=== PATIENT | male | born 1930 | race Caucasian/White ===

== ENCOUNTER 2017-07-29 17:36 | Inpatient (IN) ==
[2017-08-09] MEDS ORDERED: Acetaminophen 325 MG Tablet PO PRN (01:02)
[2017-08-09] MEDS ORDERED: Bisacodyl 10 MG Supp RECTAL PRN (01:04)
[2017-08-09] MEDS ORDERED: Dextrose 50% in Water 50 ML Vial IV.PUSH PRN (01:08)
[2017-08-09] MEDS ORDERED: Menthol 5.8 MG Lozenge BUCCAL PRN (01:16)
[2017-08-09] MEDS ORDERED: Morphine Inj 4 MG/ML Vial IV.PUSH PRN (01:18)
[2017-08-09] MEDS: Sod Chloride 0.9% Inj 1,000 ML IV.SIG SCH ×2 (02:35→21:55)
[2017-08-09] MEDS ORDERED: Chlorhexidine Gluconate 2% 1 Pack (2 Cloths) TOPICAL PRN (04:00)
[2017-08-09] MEDS: Methocarbamol 500 MG Tablet PO SCH ×3 (05:06→21:53)
[2017-08-09] MEDS: Chlorhexidine Gluconate 2% 1 Pack (2 Cloths) TOPICAL SCH (05:32)
--- NOTE | 2017-08-09 06:04 | XR ---
EXAM DATE: 08/09/2017 5:57 AM EDT AGE/SEX: 86 years / Male INDICATIONS: Right side chest tube, short of breath. CLINICAL DATA: This is the patient's subsequent encounter. Patient reports that signs and symptoms h ave been present for 1 week and indicates a pain score of 9/10. MEDICAL/SURGICAL HISTORY: None. None. COMPARISON: [facility] [place], CHEST SINGLE AP, 08/08/2017. . FINDINGS: Small effusions and basilar interstitial disease and probable pulmonary fibrosis. No new infiltrate. Heart size normal. CONCLUSION: Right chest tube. Basilar lung fibrosis. Small effusions. Electronically signed by: Alfonzo Cervantes MD 08/09/2017 6:03 AM EDT
[2017-08-09] MEDS: amLODIPine 10 MG Tablet PO SCH (08:23)
[2017-08-09] MEDS: Lisinopril 20 MG Tablet PO SCH ×2 (08:23→21:49)
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
--- NOTE | 2017-08-09 15:34 | P.PNCA ---
Subjective Interval history: No events overnight Heart rates better, blood pressure mildly elevated but stable around 140-150 systolically Physical Exam Vital signs: Vital Signs 08/09/17 02:57 08/09/17 08:00 08/09/17 12:00 Temperature 98.5 F 98.1 F 97.4 F L Pulse Rate 60 63 72 Respiratory Rate 20 17 16 Blood Pressure 143/64 H 159/71 H 140/62 Pulse Oximetry 95 98 98 Intake & Output 08/08/17 08/09/17 08/09/17 18:59 06:59 18:59 Intake Total 0 / 0 Output Total 1750 / 1750 Balance -1750 / -1750 Weight 95.9 kg Intake: Oral 0 / 0 Output: Urine 1700 / 1700 Chest Tube Drainage 50 / 50 Right Anterior 50 / 50 Narrative: GENERAL: NAD, AAOx3 SKIN: Warm and dry. HEAD: Atraumatic. Normocephalic. EYES: Pupils equal and round. No scleral icterus. No injection or drainage. ENT: No nasal bleeding or discharge. Mucous membranes pink and moist. NECK: Trachea midline. No JVD. [place] J collar CARDIOVASCULAR: Regular rate and rhythm. RESPIRATORY: No accessory muscle use. Clear to auscultation. Breath sounds equal bilaterally. GASTROINTESTINAL: Abdomen soft, non-tender, nondistended. Hepatic and splenic margins not palpable. MUSCULOSKELETAL: Extremities without clubbing, cyanosis, or edema. No obvious deformities. NEUROLOGICAL: Awake and alert. No obvious cranial nerve deficits. Motor grossly within normal limits. Five out of 5 muscle strength in the arms and legs. Normal speech. PSYCHIATRIC: Appropriate mood and affect; insight and judgment normal. Assessment and Plan - Assessment (1) Bradycardia Code(s): R00.1 - Bradycardia, unspecified Status: Acute (2) HTN (hypertension) Code(s): I10 - Essential (primary) hypertension Status: Acute - Plan 1) Pre-op CV exam Negative stress test Agree with Dr. Tamayo, moderate CV risk, may proceed 2) Bradycardia Secondary to Clonidine patch Clonidine patch stopped, bradycardia has mostly resolved 3) HTN D/C Clonidine patch Started on Norvasc, increase as necessary or increase JOSE-I
[2017-08-09] MEDS: Insulin NovoLOG Aspart Correctional Sugar Inj SQ SCH ×4 (17:03→21:52)
[2017-08-09] MEDS: Enoxaparin Inj 40 MG/0.4 ML Syringe SQ SCH (17:21)
[2017-08-09] MEDS: Docusate Sodium 100 MG Capsule PO SCH ×2 (17:23→21:47)
--- NOTE | 2017-08-09 22:16 | P.PNNS ---
Subjective Interval history: No new complaints. He is sitting up in bed, talking to friends on the telephone. States no significant neck pain. No complaint of significant weakness or numbness in the extremities. NG tube in place Physical Exam Vital signs: Vital Signs 08/09/17 02:57 08/09/17 08:00 08/09/17 12:00 Temperature 98.5 F 98.1 F 97.4 F L Pulse Rate 60 63 72 Respiratory Rate 20 17 16 Blood Pressure 143/64 H 159/71 H 140/62 Pulse Oximetry 95 98 98 08/09/17 16:00 08/09/17 20:00 Temperature 97.8 F 97.7 F Pulse Rate 72 73 Respiratory Rate 16 18 Blood Pressure 143/66 H 131/61 Pulse Oximetry 93 L 90 L Intake & Output 08/09/17 08/09/17 08/10/17 06:59 18:59 06:59 Intake Total 0 / 0 60 / 60 Output Total 1750 / 1750 Balance -1750 / -1750 60 / 60 Intake: Oral 0 / 0 Tube Feeding 60 / 60 Output: Urine 1700 / 1700 Chest Tube Drainage 50 / 50 Right Anterior 50 / 50 Narrative: Cervical collar in place Neck dressing dry and intact No significant hoarseness of voice No significant neck tenderness He is sitting up in bed, talking to friends on the telephone. States no significant neck pain. No complaint of significant weakness or numbness in the extremities. 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
[2017-08-10] MEDS: Chlorhexidine Gluconate 2% 1 Pack (2 Cloths) TOPICAL SCH (03:28)
[2017-08-10] MEDS: Methocarbamol 500 MG Tablet PO SCH ×3 (05:58→21:32)
--- NOTE | 2017-08-10 06:15 | XR ---
EXAM DATE: 08/10/2017 6:06 AM EDT AGE/SEX: 86 years / Male INDICATIONS: Short of breath, evaluate chest tube right side, pleural effusion CLINICAL DATA: This is the patient's subsequent encounter. Patient reports that signs and symptoms h ave been present for 1 week and indicates a pain score of 0/10. MEDICAL/SURGICAL HISTORY: . pleural effusion . chest tube, cervical spine COMPARISON: [facility] [place], CHEST 1V SINGLE AP, 08/09/2017. . FINDINGS: Right chest tube stable in position mid right chest. No evidence of pneumothorax. Patchy infiltrates in the left lower lung with some air bronchograms is similar to prior. Both hemidiaphragms remain wel l delineated. Interval placement of gastric tube with tip and side-port project within the stomach. CONCLUSION: Stable interstitial infiltrates left lower lung. Right chest tube stable in position. Electronically signed by: Randall Russell MD 08/10/2017 6:14 AM EDT
[2017-08-10] MEDS: Lisinopril 20 MG Tablet PO SCH ×2 (09:09→20:17)
[2017-08-10] MEDS: amLODIPine 10 MG Tablet PO SCH (09:09)
[2017-08-10] MEDS: Insulin NovoLOG Aspart Correctional Sugar Inj SQ SCH ×4 (09:11→22:04)
[2017-08-10] MEDS: Docusate Sodium 100 MG Capsule PO SCH ×2 (09:12→20:18)
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
--- NOTE | 2017-08-10 12:25 | P.PNCA ---
Subjective Interval history: No events overnight Heart rates better Physical Exam Vital signs: Vital Signs 08/09/17 16:00 08/09/17 20:00 08/10/17 00:00 Temperature 97.8 F 97.7 F 98.2 F Pulse Rate 72 73 68 Respiratory Rate 16 18 18 Blood Pressure 143/66 H 131/61 144/66 H Pulse Oximetry 93 L 90 L 92 L 08/10/17 08:00 Temperature 97.6 F Pulse Rate 81 Respiratory Rate 17 Blood Pressure 137/57 L Pulse Oximetry 91 L Intake & Output 08/09/17 08/10/17 08/10/17 18:59 06:59 18:59 Intake Total 60 / 60 0 / 0 Output Total 1050 / 1050 Balance 60 / 60 -1050 / -1050 Intake: Oral 0 / 0 Tube Feeding 60 / 60 Output: Urine 850 / 850 Chest Tube Drainage 200 / 200 Right Anterior 200 / 200 Other: # Bowel Movements 1 - Constitutional no acute distress, mild distress - Routine HEENT Exam Eye: Present: EOMI, PERRL ENT: Present: mucous membranes moist - Routine Neck Exam Present: supple. Absent: JVD - Routine Respiratory Exam Present: CTA bilaterally. Absent: accessory muscle use - Routine Cardiovascular Exam Present: RRR, S1, S2. Absent: murmur - Routine Abdominal Exam Present: soft, normoactive bowel sounds. Absent: tenderness - Routine Extremities Exam Absent: cyanosis, clubbing, edema - Routine Skin Exam Present: intact, dry - Routine Neurological Exam Present: alert, oriented X3, CN II-XII intact - Routine Psychiatric Exam Present: normal affect Assessment and Plan - Assessment (1) Bradycardia Code(s): R00.1 - Bradycardia, unspecified Status: Acute (2) HTN (hypertension) Code(s): I10 - Essential (primary) hypertension Status: Acute - Plan 1) Pre-op CV exam Negative stress test Agree with Dr. Tamayo, moderate CV risk, may proceed 2) Bradycardia Secondary to Clonidine patch Clonidine patch stopped, bradycardia has resolved 3) HTN D/C Clonidine patch Started on Norvasc, increase as necessary or increase JOSE-I 4) Will see PRN, call with questions
[2017-08-10] MEDS: Enoxaparin Inj 40 MG/0.4 ML Syringe SQ SCH (12:34)
[2017-08-10] MEDS: Famotidine 20 MG Tablet PO SCH ×2 (13:54→20:17)
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
--- NOTE | 2017-08-10 18:36 | FL ---
EXAM DATE: 08/09/2017 11:35 AM EDT AGE/SEX: 86 years / Male INDICATIONS: Aspirating thin fluids. CLINICAL DATA: This is the patient's initial encounter. Patient reports that signs and symptoms have been present for 1 day and indicates a pain score of 0/10. MEDICAL/SURGICAL HISTORY: None. None. COMPARISON: No prior exams available for comparison. FLUORO TIME: 1.7 IMAGE COUNT: 3 FINDINGS: A modified barium swallow was performed with speech pathology. Patient was given a variety of liquids to swallow. For a full detailed report, see report by the speech pathologist. CONCLUSION: For a full detailed report, see report by the speech pathologist. Electronically signed by: Samir Murrieta MD 08/10/2017 6:35 PM EDT
--- NOTE | 2017-08-10 18:58 | P.PNNS ---
Subjective Interval history: Pt denies neck pain. No radiculopathy or paresthesias in UEs. He has an NG tube in place and is on TFs. Physical Exam Vital signs: Vital Signs 08/09/17 20:00 08/10/17 00:00 08/10/17 08:00 Temperature 97.7 F 98.2 F 97.6 F Pulse Rate 73 68 81 Respiratory Rate 18 18 17 Blood Pressure 131/61 144/66 H 137/57 L Pulse Oximetry 90 L 92 L 91 L 08/10/17 12:00 08/10/17 16:00 Temperature 98.1 F 97.9 F Pulse Rate 73 83 Respiratory Rate 17 17 Blood Pressure 126/58 L 117/56 L Pulse Oximetry 92 L 95 Intake & Output 08/09/17 08/10/17 08/10/17 18:59 06:59 18:59 Intake Total 60 / 60 0 / 0 580 / 580 Output Total 1050 / 1050 600 / 600 Balance 60 / 60 -1050 / -1050 -20 / -20 Intake: Oral 0 / 0 Tube Feeding 60 / 60 580 / 580 Output: Urine 850 / 850 600 / 600 Chest Tube Drainage 200 / 200 Right Anterior 200 / 200 Other: # Voids 1 # Bowel Movements 1 6 - Constitutional no acute distress - Routine HEENT Exam Head: Present: normocephalic, atraumatic Eye: Present: PERRL. Absent: conjunctival icterus ENT: Absent: nares patent (NG tube in place.) - Routine Neck Exam Present: trachea midline. Absent: swelling (Anterior cervical incision clean and dry without signs of infection.), tracheal deviation - Routine Respiratory Exam Present: CTA bilaterally. Absent: respiratory distress, rhonchi, wheezes - Routine Cardiovascular Exam Present: RRR, S1, S2. Absent: murmur - Routine Abdominal Exam Present: soft, normoactive bowel sounds. Absent: tenderness, distended, guarding, firm - Routine Skin Exam Present: intact, dry. Absent: cyanosis, erythema Comments: Incision clean and dry. No signs of infection. New bandage placed. - Routine Neurological Exam Present: alert, oriented X3, moving all extremities (weakness with deltoid bilaterally 4/5 and right triceps 4/5. Bilateral EHL weakness 3-/5.). Absent: altered mental status - Detailed Neurological Exam: Coma Scale Eye Opening: Spontaneous Verbal Response: Oriented Motor Response: Obey commands [place] Coma Scale Total: 15 - Routine Psychiatric Exam Present: normal affect Assessment and Plan - Assessment (1) Cervical spine instability Code(s): M53.2X2 - Spinal instabilities, cervical region Status: Acute - Plan Discussed with patient Continuing cervical collar Continuing physical therapy Anticipate possible T7-8 ORIF on Thursday by Dr. Vivas.
[2017-08-11] MEDS: Chlorhexidine Gluconate 2% 1 Pack (2 Cloths) TOPICAL SCH (05:33)
[2017-08-11] MEDS: Methocarbamol 500 MG Tablet PO SCH ×3 (05:46→21:34)
[2017-08-11 05:49] LABS: Baso # (Auto) 0.1 th/mm3 (0.0-0.2); Baso % (Auto) 0.5 % (0.0-2.0); Hematocrit 35.7 % (39.0-51.0); Hemoglobin 11.6 gm/dL (13.0-17.0); Lymph # (Auto) 0.8 th/mm3 (1.0-4.8); Lymph % (Auto) 5.1 % (9.0-44.0); Mean Corpuscular HGB Conc 32.6 % (32.0-36.0); Mean Corpuscular Hemoglobin 26.2 pg (27.0-34.0); Mean Corpuscular Volume 80.4 fL (80.0-100.0); Mean Platelet Volume 7.5 fL (7.0-11.0); Mono # (Auto) 0.8 th/mm3 (0.0-0.9); Mono % (Auto) 5.2 % (0.0-8.0); Neut # (Auto) 14.2 th/mm3 (1.8-7.7); Neut % (Auto) 89.2 % (16.0-70.0); Platelet Count 326 th/mm3 (150-450); Red Blood Count 4.44 mil/mm3 (4.50-5.90); Red Cell Distribution Width 15.2 % (11.6-17.2); White Blood Count 15.9 th/mm3 (4.0-11.0)
[2017-08-11 06:19] LABS: Calcium 8.3 mg/dL (8.5-10.1); Carbon Dioxide 30.6 meq/L (21.0-32.0); Potassium 4.6 meq/L (3.5-5.1)
--- NOTE | 2017-08-11 07:00 | XR ---
EXAM DATE: 08/11/2017 6:51 AM EDT AGE/SEX: 86 years / Male INDICATIONS: Short of breath, evaluate right side chest tube, pleural effusion CLINICAL DATA: This is the patient's subsequent encounter. Patient reports that signs and symptoms h ave been present for 1 week and indicates a pain score of Nonresponsive. MEDICAL/SURGICAL HISTORY: . pleural effusion . chest tube COMPARISON: [facility], CHEST 1V SINGLE AP, 08/10/2017. . FINDINGS: Gastric tube tip and side-port projected in the stomach. Right chest tube projects in the right mid c hest, stable position. Diffuse patchy interstitial infiltrates are similar in severity to prior. No e vidence of pneumothorax. CONCLUSION: Stable bilateral interstitial infiltrates. Electronically signed by: Randall Russell MD 08/11/2017 6:58 AM EDT
[2017-08-11] MEDS: Lisinopril 20 MG Tablet PO SCH ×2 (08:43→20:31)
[2017-08-11] MEDS: Famotidine 20 MG Tablet PO SCH ×2 (08:43→20:31)
[2017-08-11] MEDS: amLODIPine 10 MG Tablet PO SCH (08:43)
[2017-08-11] MEDS: Insulin NovoLOG Aspart Correctional Sugar Inj SQ SCH ×4 (08:47→20:33)
[2017-08-11] MEDS: Docusate Sodium 100 MG Capsule PO SCH ×2 (08:48→20:32)
[2017-08-11] MEDS ORDERED: Famotidine Susp 40 MG/5ML 50 ML Bottle PO SCH (09:00)
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
--- NOTE | 2017-08-11 12:21 | P.PNNS ---
Subjective Interval history: This morning the patient is sitting up in the chair watching TV. He denies any neck pain but does say he has a little to the back. He denies any pain, numbness or tingling to the extremities. He is in the [place] J cervical collar. <Miguel Ángel Malone E - Last Filed: 08/11/17 12:01> Physical Exam Vital signs: Vital Signs 08/10/17 16:00 08/10/17 20:00 08/11/17 00:00 Temperature 97.9 F 98.1 F 98 F Pulse Rate 83 75 77 Respiratory Rate 17 18 18 Blood Pressure 117/56 L 122/58 L 125/60 Pulse Oximetry 95 95 95 08/11/17 08:00 Temperature 97.9 F Pulse Rate 73 Respiratory Rate 17 Blood Pressure 125/57 L Pulse Oximetry 93 L Intake & Output 08/10/17 08/11/17 08/11/17 18:59 06:59 18:59 Intake Total 580 / 580 643 / 643 Output Total 600 / 600 610 / 610 Balance -20 / -20 33 / 33 Weight 96 kg Intake: Oral 0 / 0 Tube Feeding 580 / 580 583 / 583 Tube Irrigant 60 / 60 Output: Urine 600 / 600 600 / 600 Chest Tube Drainage Right Anterior Other: # Voids 1 # Incontinent Voids 3 Date of Last Bowel Movement 08/10/17 # Bowel Movements 6 Narrative: GENERAL: Awake & alert, sitting in the chair watching TV. Affect slightly flat but readily interacts. No apparent distress. HEENT: Normocephalic, atraumatic. PERRLA 2 mm brisk, EOMI. NGT clamped. NECK: [place] J cervical collar in place. Midline cervical spine NTTP. Anterior neck surgical incision w/intact dressing, incision well approximated w/o any drainage, erythema or streaking noted. No JVD. Trachea midline. MUSCULOSKELETAL: LAURENT spontaneously & purposefully w/o difficulty. Mildly TTP to the mid to lower thoracic spine. NEUROLOGICAL: AAOx3. Speech clear & appropriate. Follows simple commands w/o difficulty. Sensation is intact to light touch to the extremities. Motor strength mildly decreased to the right biceps 4+/5 & right triceps 4/5, o/w strong to all extremities. <Miguel Ángel Malone E - Last Filed: 08/11/17 12:01> Vital signs: Vital Signs 08/11/17 00:00 08/11/17 08:00 08/11/17 12:00 Temperature 98 F 97.9 F 98.4 F Pulse Rate 77 73 70 Respiratory Rate 18 17 17 Blood Pressure 125/60 125/57 L 123/59 L Pulse Oximetry 95 93 L 94 L 08/11/17 16:00 Temperature 98.1 F Pulse Rate 76 Respiratory Rate 17 Blood Pressure 122/56 L Pulse Oximetry 95 Intake & Output 08/11/17 08/11/17 08/12/17 06:59 18:59 06:59 Intake Total 643 / 643 445 / 445 Output Total 610 / 610 250 / 250 Balance 33 / 33 195 / 195 Weight 96 kg Intake: Oral 0 / 0 Tube Feeding 583 / 583 445 / 445 Tube Irrigant 60 / 60 Output: Urine 600 / 600 250 / 250 Chest Tube Drainage Right Anterior Other: # Voids 1 # Incontinent Voids 3 Date of Last Bowel Movement 08/10/17 <Steve Palm - Last Filed: 08/11/17 20:43> Assessment and Plan - Assessment (1) Cervical spine instability Code(s): M53.2X2 - Spinal instabilities, cervical region Status: Acute - Plan Discussed with patient Continuing cervical collar Continuing physical therapy Anticipate possible T7-8 ORIF on Thursday by Dr. Vivas. <Miguel Ángel Malone - Last Filed: 08/11/17 12:01> - Assessment (1) Cervical spine instability Code(s): M53.2X2 - Spinal instabilities, cervical region Status: Acute - Attending Attestation The exam, history, and the medical decision-making described in the above note were completed with the assistance of the mid-level provider. I reviewed and agree with the findings presented. I attest that I had a [id number] encounter with the patient on the same day, and personally performed and documented my assessment and findings in the medical record. Patient's neurologic exam remained stable. May have a little proximal upper extremity weakness. Anticipate further surgical stabilization per Dr. Vivas on 08/14/2017 <Steve Palm - Last Filed: 08/11/17 20:43>
[2017-08-11] MEDS: Enoxaparin Inj 40 MG/0.4 ML Syringe SQ SCH (12:47)
[2017-08-12] MEDS: Chlorhexidine Gluconate 2% 1 Pack (2 Cloths) TOPICAL SCH (03:50)
[2017-08-12 04:49] LABS: Baso % (Auto) 0.1 % (0.0-2.0); Eos % (Auto) 0.1 % (0.0-4.0); Hemoglobin 11.6 gm/dL (13.0-17.0); Lymph # (Auto) 0.5 th/mm3 (1.0-4.8); Lymph % (Auto) 3.5 % (9.0-44.0); Mean Corpuscular HGB Conc 32.1 % (32.0-36.0); Mean Corpuscular Hemoglobin 26.3 pg (27.0-34.0); Mean Corpuscular Volume 81.9 fL (80.0-100.0); Mono # (Auto) 0.5 th/mm3 (0.0-0.9); Mono % (Auto) 3.6 % (0.0-8.0); Neut # (Auto) 13.8 th/mm3 (1.8-7.7); Neut % (Auto) 92.7 % (16.0-70.0); Platelet Count 306 th/mm3 (150-450); Red Cell Distribution Width 15.3 % (11.6-17.2); White Blood Count 14.9 th/mm3 (4.0-11.0)
[2017-08-12] MEDS: Methocarbamol 500 MG Tablet PO SCH ×4 (05:00→21:02)
[2017-08-12 05:11] LABS: Calcium 8.5 mg/dL (8.5-10.1); Carbon Dioxide 32.6 meq/L (21.0-32.0); Potassium 5.3 meq/L (3.5-5.1)
--- NOTE | 2017-08-12 08:47 | XR ---
EXAM DATE: 08/12/2017 8:40 AM EDT AGE/SEX: 86 years / Male INDICATIONS: Trauma to chest. CLINICAL DATA: This is the patient's subsequent encounter. Patient reports that signs and symptoms h ave been present for 4 - 6 days and indicates a pain score of 0/10. MEDICAL/SURGICAL HISTORY: . pleural effusion . Chest tube. COMPARISON: [facility] [place], CHEST 1V SINGLE AP, 08/11/2017. . FINDINGS: A single AP view of the chest demonstrates removal of right-sided chest tube. Tiny right apical pneum othorax. Bibasilar interstitial densities are stable. Nasogastric tube with tip in stomach. The card iomediastinal contours are unremarkable. Osseous structures are intact. CONCLUSION: Minimal pneumothorax status post right-sided chest tube removal Electronically signed by: Jadiel Wilkes MD 08/12/2017 8:45 AM EDT
[2017-08-12] MEDS: amLODIPine 10 MG Tablet PO SCH (09:09)
[2017-08-12] MEDS: Lisinopril 20 MG Tablet PO SCH ×2 (09:09→20:57)
[2017-08-12] MEDS: Famotidine 20 MG Tablet PO SCH ×2 (09:09→20:57)
[2017-08-12] MEDS: Docusate Sodium 100 MG Capsule PO SCH ×2 (09:10→20:58)
[2017-08-12] MEDS: Insulin NovoLOG Aspart Correctional Sugar Inj SQ SCH ×4 (09:11→21:01)
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
[2017-08-12] MEDS: Enoxaparin Inj 40 MG/0.4 ML Syringe SQ SCH (12:07)
--- NOTE | 2017-08-12 14:54 | P.PNNS ---
Subjective Interval history: Pt awake and alert. Sitting up in chair. Complains of mid back pain. No radiculopathy in UEs or LEs. Physical Exam Vital signs: Vital Signs 08/11/17 16:00 08/11/17 20:00 08/12/17 00:00 Temperature 98.1 F 98.9 F 98.7 F Pulse Rate 76 72 69 Respiratory Rate 17 18 18 Blood Pressure 122/56 L 130/60 116/55 L Pulse Oximetry 95 94 L 94 L 08/12/17 04:00 08/12/17 08:00 Temperature 98.1 F 97.7 F Pulse Rate 68 68 Respiratory Rate 18 16 Blood Pressure 128/58 L 134/64 Pulse Oximetry 94 L 94 L Intake & Output 08/11/17 08/12/17 08/12/17 18:59 06:59 18:59 Intake Total 445 / 445 625 / 625 Output Total 250 / 250 850 / 850 Balance 195 / 195 -225 / -225 Intake: Tube Feeding 445 / 445 625 / 625 Output: Urine 250 / 250 850 / 850 Other: # Voids 1 Date of Last Bowel Movement 08/10/17 08/12/17 # Bowel Movements 2 # Incontinent Bowel Movements 1 - Constitutional no acute distress, obese - Routine HEENT Exam Head: Present: normocephalic, atraumatic Eye: Present: PERRL ENT: Present: nares patent (NG Tube in place.) - Routine Respiratory Exam Present: CTA bilaterally. Absent: rhonchi, wheezes - Routine Cardiovascular Exam Present: RRR, S1, S2. Absent: murmur - Routine Abdominal Exam Present: soft, normoactive bowel sounds. Absent: tenderness, distended - Routine Extremities Exam Absent: cyanosis - Routine Skin Exam Present: intact. Absent: cyanosis, erythema - Routine Neurological Exam Present: alert, moving all extremities (Bilateral EHL weakness 3/5. Generalized weakness in extremities.), normal speech - Routine Psychiatric Exam Present: normal affect, cooperative. Absent: agitated Assessment and Plan - Assessment (1) Cervical spine instability Code(s): M53.2X2 - Spinal instabilities, cervical region Status: Acute - Plan Discussed with patient Continuing cervical collar Continuing physical therapy Anticipate possible T7-8 ORIF on Thursday by Dr. Vivas.
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
[2017-08-13] MEDS ORDERED: Sodium Chlor 0.9% Inj 500 ML IV.SIG SCH (02:00)
[2017-08-13] MEDS ORDERED: Metoprolol Tartrate 25 MG Tablet PO SCH (02:00)
[2017-08-13] MEDS ORDERED: Chlorhexidine Gluconate 2% 1 Pack (2 Cloths) TOPICAL SCH (02:00)
[2017-08-13] MEDS: Chlorhexidine Gluconate 2% 1 Pack (2 Cloths) TOPICAL SCH (03:20)
[2017-08-13] MEDS: Methocarbamol 500 MG Tablet PO SCH ×4 (05:10→22:56)
[2017-08-13] MEDS ORDERED: Ketamine Inj 50 MG/5 ML Syringe IV.PUSH ONE (10:56)
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
--- NOTE | 2017-08-13 11:22 | GIPROC ---
[facility] [address] [facility]. [facility] [place], [address] PEG PROCEDURE REPORT EXAM DATE: 08/13/2017 PATIENT NAME: Baltazar Brown MR#: [id number] BIRTHDATE: 1930 ATTENDING: Antonina Cochran MD ORDER #: [id number] SALES TRADER: Gilles Hunt STATUS: inpatient INDICATIONS: The patient is a 86 yr old male here for an EGD with PEG due to dysphagia PROCEDURE PERFORMED: Peg Placement MEDICATIONS: None and Per Anesthesia. TOPICAL ANESTHETIC: none CONSENT: The patient understands the risks and benefits of the procedure and understands that these risks include, but are not limited to: sedation, allergic reaction, infection, perforation and/or bleeding. Alternative means of evaluation and treatment include, among others: physical exam, x-rays, and/or surgical intervention. The patient elects to proceed with this endoscopic procedure. medical equipment was checked for proper function. Hand hygiene and appropriate measures for infection prevention was taken. After the risks, benefits and alternatives of the procedure were thoroughly explained, Informed consent was verified, confirmed and timeout was successfully executed by the treatment team. The patient was anesthetized with topical anesthesia and the Nokoriax [id number] endoscope was introduced through the mouth and advanced to the Extent of Exam. The instrument was slowly withdrawn as the mucosa was fully examined. The stomach was then inflated with air, and by a combination of transillumination and manual palpation, the site for the gastrostomy tube placement was selected and marked on the anterior abdominal wall. The skin of the anterior abdomen was surgically prepped and draped with sterile towels. Utilizing strict sterile technique, the selected site was then anesthetized with 1% xylocaine by injection into the skin and subcutaneous tissue. A 1 cm incision was made through the skin and subcutaneous tissue, and the needle/cannula assembly was then passed through the abdominal wall and through the anterior wall of the stomach, maintaining visualization with the endoscope. A snare device previously placed through the instrument channel was then opened and placed around the cannula, the needle was removed, and the insertion wire was passed through the cannula and into the stomach lumen. The snare was then loosened from the cannula, and repositioned to snare the insertion wire. The snare was then pulled up to the endoscope distal tip, and the scope was then withdrawn bringing with it the snare and insertion wire. The insertion wire was then released from the snare, and then loop-attached to the gastrostomy tube. Using the "pull technique", the G-tube was then pulled into place by traction on the insertion wire at the abdominal wall end. The G-tube insertion site was then cleansed once again, and the external bolster was placed over the tube to secure it to the abdominal wall. A sterile dressing was then applied, and the procedure terminated. hiatal hernia The gastroscope was then slowly withdrawn and removed. ADVERSE EVENT: There were no complications. IMPRESSIONS: S/p percutaneous endoscopic gastrostomy RECOMMENDATIONS: 1. Follow PEG suggestions 2. Begin feeding tomorrow REPEAT EXAM: procedure as needed Antonina Cochran MD eSigned: Antonina Cochran MD 08/13/2017 11:22 AM cc: PATIENT NAME: Baltazar Brown MR#: [id number]
[2017-08-13] MEDS: Insulin NovoLOG Aspart Correctional Sugar Inj SQ SCH ×2 (14:37→23:05)
[2017-08-13] MEDS: Docusate Sodium 100 MG Capsule PO SCH ×2 (14:38→21:57)
[2017-08-13] MEDS: amLODIPine 10 MG Tablet PO SCH (14:39)
[2017-08-13] MEDS: Famotidine 20 MG Tablet PO SCH ×3 (14:40→22:57)
[2017-08-13] MEDS: Lisinopril 20 MG Tablet PO SCH ×3 (14:40→22:57)
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
--- NOTE | 2017-08-13 20:30 | P.PNNS ---
Subjective Interval history: No new complaints. Mild neck discomfort. No complaint of any new extremity pain weakness or numbness. Physical Exam Vital signs: Vital Signs 08/12/17 20:44 08/13/17 01:03 08/13/17 08:00 Temperature 98.0 F 98.0 F 98.1 F Pulse Rate 80 63 65 Respiratory Rate 18 17 17 Blood Pressure 134/66 122/50 L 125/58 L Pulse Oximetry 96 96 98 08/13/17 11:32 08/13/17 12:00 08/13/17 16:00 Temperature 97.8 F 98.4 F 97.8 F Pulse Rate 64 84 70 Respiratory Rate 18 18 17 Blood Pressure 114/54 L 97/50 L 128/60 Pulse Oximetry 95 91 L 96 Intake & Output 08/13/17 08/13/17 08/14/17 06:59 18:59 06:59 Intake Total 780 / 780 100 / 100 Output Total 800 / 800 900 / 900 Balance -20 / -20 -800 / -800 Weight 96 kg Intake: Oral 780 / 780 Anesthesia Amount 100 / 100 Output: Urine 800 / 800 900 / 900 Other: Date of Last Bowel Movement 08/12/17 # Bowel Movements 0 Narrative: Sitting up in bed. Cervical collar in place No significant neck tenderness. Indicates good sensation light touch all extremities Moves all extremities moderate strength to command Assessment and Plan - Assessment (1) Cervical spine instability Code(s): M53.2X2 - Spinal instabilities, cervical region Status: Acute - Plan Discussed with patient Continuing cervical collar Continuing physical therapy Anticipate possible T7-8 ORIF on Thursday by Dr. Vivas.
[2017-08-14 04:44] LABS: Baso % (Auto) 0.2 % (0.0-2.0); Eos # (Auto) 0.3 th/mm3 (0.0-0.4); Eos % (Auto) 2.6 % (0.0-4.0); Hematocrit 36.3 % (39.0-51.0); Hemoglobin 11.6 gm/dL (13.0-17.0); Lymph # (Auto) 0.9 th/mm3 (1.0-4.8); Lymph % (Auto) 8.5 % (9.0-44.0); Mean Corpuscular HGB Conc 31.9 % (32.0-36.0); Mean Corpuscular Hemoglobin 26.1 pg (27.0-34.0); Mean Platelet Volume 8.1 fL (7.0-11.0); Mono # (Auto) 0.8 th/mm3 (0.0-0.9); Mono % (Auto) 7.6 % (0.0-8.0); Neut # (Auto) 8.5 th/mm3 (1.8-7.7); Neut % (Auto) 81.1 % (16.0-70.0); Platelet Count 277 th/mm3 (150-450); Red Blood Count 4.42 mil/mm3 (4.50-5.90); Red Cell Distribution Width 15.4 % (11.6-17.2); White Blood Count 10.5 th/mm3 (4.0-11.0)
[2017-08-14 05:04] LABS: Calcium 8.5 mg/dL (8.5-10.1); Carbon Dioxide 28.7 meq/L (21.0-32.0); Potassium 5.2 meq/L (3.5-5.1)
--- NOTE | 2017-08-14 07:11 | XR ---
EXAM DATE: 08/14/2017 7:03 AM EDT AGE/SEX: 86 years / Male INDICATIONS: Short of breath, follow up post chest tube removal right side CLINICAL DATA: This is the patient's subsequent encounter. Patient reports that signs and symptoms h ave been present for 1 week and indicates a pain score of Nonresponsive. MEDICAL/SURGICAL HISTORY: . pneumothorax . right side chest tube and removal COMPARISON: [facility] [place], CHEST 1V SINGLE AP, 08/12/2017. . FINDINGS: Portable upright AP views of the chest demonstrate a normal-sized cardiac silhouette with calcificati on of the aorta. Lungs are underinflated. No pneumothorax is identified. There is mild bibasilar opac ity, right greater than left. Slight blunting the right costophrenic angle is present. Bones and soft tissues demonstrate no acute finding. CONCLUSION: 1. No pneumothorax is identified. 2. Mild bibasilar opacity representing atelectasis versus consolidation. Slight blunting of the righ t costophrenic sulcus is stable and may represent pleural fluid. Electronically signed by: Augie Treviño MD 08/14/2017 7:10 AM EDT
[2017-08-14] MEDS: Insulin NovoLOG Aspart Correctional Sugar Inj SQ SCH ×5 (09:24→21:14)
[2017-08-14] MEDS: Docusate Sodium 100 MG Capsule PO SCH ×2 (09:25→21:02)
[2017-08-14] MEDS: Lisinopril 20 MG Tablet PO SCH ×2 (09:27→21:03)
[2017-08-14] MEDS: amLODIPine 10 MG Tablet PO SCH (09:27)
[2017-08-14] MEDS: Famotidine 20 MG Tablet PO SCH ×2 (09:27→21:03)
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
[2017-08-14] MEDS ORDERED: Glycopyrrolate Inj 1 MG/5 ML Syringe IV.PUSH ONE (12:00)
[2017-08-14] MEDS ORDERED: Lidocaine PF 1% Inj 5 ML Syringe INFILTRATN ONE (12:00)
[2017-08-14] MEDS ORDERED: Sodium Chlor 0.9% Inj 500 ML IV.SIG ONE (12:00)
[2017-08-14] MEDS ORDERED: Phenylephrine/NS 1000 MCG/10ML Syringe IV.PUSH ONE (12:00)
[2017-08-14] MEDS ORDERED: Propofol Inj 500 MG/50 ML Vial ONE (13:22)
[2017-08-14] MEDS: Methocarbamol 500 MG Tablet PO SCH (13:25)
[2017-08-14] MEDS ORDERED: SUFentanil Inj 250 MCG/5 ML Ampul ONE (14:20)
[2017-08-14] MEDS ORDERED: ceFAZolin 2 GM Premix Inj 2 GM/50 ML PIGGYBACK IV.SIG ONE (14:37)
[2017-08-14] MEDS ORDERED: Bisacodyl 10 MG Supp RECTAL PRN (14:38)
[2017-08-14] MEDS ORDERED: fentaNYL Citrate Inj 100 MCG/2 ML Ampul ONE ×2 (15:27→19:16)
[2017-08-14] MEDS ORDERED: Thrombin Topical Soln 5,000 UNIT Vial TOPICAL ONE ×2 (15:45→15:47)
[2017-08-14 16:58] LABS: ABG Base Excess 1.4 mmol/L (-2-2); ABG PCO2 37 mmHg (38-42); ABG PO2 239 mmHG (61-120)
[2017-08-14] MEDS ORDERED: Gelatin Size 100 Topical Foam ONE (17:11)
[2017-08-14] MEDS ORDERED: Bupivacaine/Epinephrine 0.5% Inj 50 ML Vial ONE (18:01)
[2017-08-14] MEDS ORDERED: Propofol 1000 mg/100 ml Inj 1,000 MG/100 ML BOTTLE ONE (18:21)
--- NOTE | 2017-08-14 19:20 | P.OP ---
- Preoperative Diagnosis (1) Thoracic spine instability - Postoperative Diagnosis (1) Thoracic spine instability Date of procedure: 08/15/17 Procedure: Open reduction internal fixation of T7-T8 fracture and ligamentous injury, T7- T9 segment and instrumented fixation using transpedicular screws and rods, T7 through T9 posterolateral fusion using autologous iliac crest bone graft and demineralized bone matrix, microsurgical dissection Anesthesia: GETA Surgeon: Gerald Vivas MD Cleaner And Dyer: Jere Estimated blood loss (mL): 300 Pathology: none sent Operation and Findings: Mr. Brown is a 86 year-old male who presented with severe intractable mechanical back pain and a very unstable thoracic spinal fracture and ligamentous injury. A surgical decompression with reduction of the fracture and arthrodhesis were indicated as the most appropriate treatment. The [id number] details of the procedure, indications, alternatives, risks and potential complications were fully discussed with the patient. The patient fully understood. All questions were answered. No guarantees were given. The patient voiced requesting the procedure and provided informed consents. The patient had been offered the alternative of delaying the procedure and continuing with nonsurgical management. DETAILS OF THE SURGICAL PROCEDURE Prior to the procedure,the surgical incision was marked in the preoperative surgical holding room, and the procedure, risks, and potential complications revisited with the patient. Placement of electrodes for intraoperative neurophysiological monitoring was completed. The patient was taken to the operative room, and following induction of general anesthesia, endotracheal intubation was performed. A Alfonso catheter bilateral Peter and sequential compression devices were placed and kept throughout the procedure. The patient was carefully rolled into the prone position over a Eamon table with a gell rolls. All pressure points were carefully padded with eggcrate mattress. The eyes were tapped shut after ointment was applied by the anesthesiologist to prevent corneal abrasion. A Meir hugger was placed over the expossed lower body to maintain control of the core body temperature. The electrophysiological team placed the needles and electrodes in their proper location and baseline SSEP's and motor evoked potentials were registered. The thoracic lumbar region was prepped and draped in the usual sterile fashion. A localizing X-ray was performed with the C-arm and the fracture was localized. Two paramedian skin incisions were outlined from the spinous process of T7 down to T9 Surgical Approach The skin incisions were made with a #10 blade. Dissection was carried out through the thoracolumbar fascia with a Bovie. Blunt dissection was carries out splitting the muscles and the anatomical landmarks of T7 down to T9 were identified in preparation for placement of the screws Instrumental fixation At this point in the procedure, placement of bilateral transpedicular screws was necessary for stabilization of the spine. The levels were carefully marked with a TPS and bilateral transpedicular screws were placed using a standard fashion. Initially, the entry point for the screw was selected anatomically at the junction of the facet, with the transverse process, and the pars interarticularis. This was started with a Giamshetti needle followed by the use of a piña wire. Finally, bilateral transpedicular piña wires were carefully placed bilaterally at T7 down to T9 under fluoroscopic visualization. An appropriate purchase was achieved with all other screws. The position of each screw was assessed anatomically with an AP, lateral, oblique Xrays. An intraoperative scan view of the spine was then performed using the iso-centric c -arm. Each lumbar screw was then assessed electrophysiologically with a nerve stimulator. Once all screws were in position, the operative microscope was draped in the usual sterile fashion and brought to the field. The rest of the surgical procedure was performed using microdissection technique with the exception of the closure. Under the operative microscope, a small laminectomy was performed at 7-8. HARVESTING OF ILLIAC CREST BONE An incision was then made over the patient's right posterior iliac crest. The fascia was carefully opened with a Bovie and the posterior iliac crest was exposed. A small cortical window was created with an osteotome. Cancellous bone was then harvested, to be used during the interbody arthrodesis and the posterolateral fusion. Once an appropriate amount of bone was obtained, the incision was irrigated with antibiotic solution and hemostasis secured by packing the iliac crest with Surgicel. The cortical window was then repositioned and secured using 0 Vicryl sutures. The incision was irrigated and the fascia was closed with interrupted 0 Vicryl sutures. The subcutaneous tissue was approximated with 3-0 Vicryl sutures. Posterolateral fusion Then, the lateral gutters of the spine, facets and transverse processes at T7 down to T9 were carefully decorticated with a TPS drill in preparation for the posterior lateral fusion. The incision was thoroughly irrigated with antibiotic solution. The posterolateral fusion was performed by carefully packing the gutters of the spine with a autologous iliac crest bone graft combined with demineralized bone matrix. Completion of the Procedure The rods were brought to the field. Sequential application of the cap was achieved which allowed for further correction of the kyphosis. Final tightening of all screws was achieved with a torque wrench. The incision was thoroughly irrigated with several liters of antibiotic solution. The decompression was reassessed with an nerve hook and found to be appropriate.The incision was then closed in layers. 0 Vicryl with interrupted sutures were used to close the thoracolumbar fascia. The superficial fascia was closed with 0 Vicryl sutures. Three-0 Vicryl was used to close the subcutaneous tissue. The skin was closed with 4-0 addison. Dermabond was applied to the skin. The drain was secured 3-0 nylon. At the end of the procedure the sponges, needles, and instrument counts were all correct. Estimated blood loss was 300 cc's. No complications occurred. The patient received prophylactic antibiotics. The patient was then extubated and transferred to the recovery room in stable condition. The entire procedure was performed using electrophysiological monitor of the electromyogram, evoked potential and sphincters. No intraoperative abnormalities were detected.
[2017-08-14] MEDS ORDERED: *morphine SULFATE 10 MG/ML PERIprocedure ONLY ONE (19:29)
--- NOTE | 2017-08-14 19:45 | XR ---
EXAM DATE: 08/14/2017 7:34 PM EDT AGE/SEX: 86 years / Male INDICATIONS: Evaluate ET tube placement. CLINICAL DATA: This is the patient's initial encounter. Patient reports that signs and symptoms have been present for 1 day and indicates a pain score of Nonresponsive. MEDICAL/SURGICAL HISTORY: None. None. [place] [facility] [place]14/2017. . FINDINGS: The endotracheal tube has its tip approximately 2 cm above the timothy. A left subclavian central line has its tip at the junction of the superior vena cava and right atrium. There is no pneumothorax. Liz rdware is noted within thoracic spine status post thoracic fusion. Hardware is also noted within the cervical spine status post fusion. Scattered atelectatic changes are noted bilaterally. Heart is stab le. CONCLUSION: 1. Scattered atelectatic changes bilaterally. 2. Endotracheal tube in good position 2 cm above the timothy. Electronically signed by: Antonino Riley MD 08/14/2017 7:44 PM EDT
[2017-08-14 19:47] LABS: ABG Base Excess -0.1 mmol/L (-2-2); ABG PCO2 41 mmHg (38-42); ABG PO2 243 mmHG (61-120)
--- NOTE | 2017-08-14 19:47 | XR ---
EXAM DATE: 08/14/2017 7:37 PM EDT AGE/SEX: 86 years / Male INDICATIONS: ORIF T8 and screws and rods placement T7 to T9. CLINICAL DATA: This is the patient's subsequent encounter. Patient reports that signs and symptoms h ave been present for 1 week and indicates a pain score of Nonresponsive. MEDICAL/SURGICAL HISTORY: Hypertension. Fusion, cervical. Appendectomy. Inguinal hernia repair. chest tube [place]PAR[place]: [facility] [place] [facility] 08/04/2017. . FINDINGS: The patient is status post thoracic fusion with hardware in good position. CONCLUSION: Status post thoracic fusion with hardware in good position. Electronically signed by: Antonino Riley MD 08/14/2017 7:45 PM EDT
[2017-08-14] MEDS: Sod Chloride 0.9% Inj 1,000 ML IV.CONT SCH (19:56)
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
[2017-08-14] MEDS: Senna/Docusate Sodium 8.6/50 MG Tablet PO SCH (21:03)
[2017-08-14] MEDS: ceFAZolin 2 GM Premix Inj 2 GM/50 ML PIGGYBACK IV.SIG SCH (21:20)
[2017-08-15] MEDS: Propofol 1000 mg/100 ml Inj 1,000 MG/100 ML BOTTLE IV.CONT PRN ×2 (03:20→20:38)
[2017-08-15] MEDS: Sod Chloride 0.9% Inj 1,000 ML IV.CONT SCH ×3 (04:44→21:47)
[2017-08-15] MEDS: Methocarbamol 500 MG Tablet PO SCH ×4 (05:14→21:50)
[2017-08-15] MEDS: ceFAZolin 2 GM Premix Inj 2 GM/50 ML PIGGYBACK IV.SIG SCH ×3 (05:15→17:01)
[2017-08-15 06:55] LABS: Baso % (Auto) 0.2 % (0.0-2.0); Eos # (Auto) 0.1 th/mm3 (0.0-0.4); Eos % (Auto) 0.7 % (0.0-4.0); Hematocrit 27.1 % (39.0-51.0); Lymph # (Auto) 0.6 th/mm3 (1.0-4.8); Lymph % (Auto) 5.3 % (9.0-44.0); Mean Corpuscular HGB Conc 33.2 % (32.0-36.0); Mean Corpuscular Hemoglobin 26.7 pg (27.0-34.0); Mean Corpuscular Volume 80.2 fL (80.0-100.0); Mono # (Auto) 0.7 th/mm3 (0.0-0.9); Mono % (Auto) 6.3 % (0.0-8.0); Neut # (Auto) 9.8 th/mm3 (1.8-7.7); Neut % (Auto) 87.5 % (16.0-70.0); Platelet Count 219 th/mm3 (150-450); Red Blood Count 3.38 mil/mm3 (4.50-5.90); Red Cell Distribution Width 14.9 % (11.6-17.2); White Blood Count 11.2 th/mm3 (4.0-11.0)
[2017-08-15 07:10] LABS: Calcium 7.4 mg/dL (8.5-10.1); Carbon Dioxide 27.6 meq/L (21.0-32.0); Magnesium 2.3 mg/dL (1.5-2.5); Phosphorus 4.8 mg/dL (2.5-4.9)
[2017-08-15 07:26] LABS: Calcium-Albumin Corrected 8.6 mg/dL (8.5-10.1)
[2017-08-15] MEDS: Insulin NovoLOG Aspart Correctional Sugar Inj SQ SCH ×4 (08:51→21:48)
[2017-08-15] MEDS: Lisinopril 20 MG Tablet PO SCH ×2 (08:54→21:49)
[2017-08-15] MEDS: Senna/Docusate Sodium 8.6/50 MG Tablet PO SCH ×2 (08:54→20:35)
[2017-08-15] MEDS: Famotidine 20 MG Tablet PO SCH ×2 (08:54→20:34)
[2017-08-15] MEDS: Docusate Sodium 100 MG Capsule PO SCH ×2 (08:56→20:34)
[2017-08-15] MEDS: amLODIPine 10 MG Tablet PO SCH (09:01)
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
--- NOTE | 2017-08-15 13:37 | P.PNNS ---
Subjective Interval history: Patient is status post thoracic fusion. Remains intubated Physical Exam Vital signs: Vital Signs 08/14/17 19:00 08/14/17 19:08 08/14/17 19:15 Temperature 95.0 F L Pulse Rate 68 66 Respiratory Rate 15 15 15 Blood Pressure 104/53 L Pulse Oximetry 100 100 100 08/14/17 19:30 08/14/17 19:45 08/14/17 19:55 Temperature Pulse Rate 60 60 Respiratory Rate 15 15 15 Blood Pressure 115/54 L 106/51 L Pulse Oximetry 100 100 100 08/14/17 20:00 08/14/17 20:15 08/14/17 20:30 Temperature 97.3 F L Pulse Rate 61 59 L 59 L Respiratory Rate 15 15 15 Blood Pressure 101/53 L 106/53 L 109/57 L Pulse Oximetry 100 100 100 08/14/17 20:45 08/14/17 21:00 08/14/17 21:15 Temperature Pulse Rate 59 L 59 L 59 L Respiratory Rate 15 15 15 Blood Pressure 117/55 L 114/55 L 99/51 L Pulse Oximetry 100 100 100 08/14/17 21:44 08/14/17 22:00 08/15/17 03:21 Temperature 98.3 F Pulse Rate 64 Respiratory Rate 15 15 15 Blood Pressure 109/55 L Pulse Oximetry 35 L 100 08/15/17 04:00 08/15/17 08:00 08/15/17 10:01 Temperature 98.4 F 97.7 F Pulse Rate 60 68 Respiratory Rate 15 15 16 Blood Pressure 116/50 L 128/56 L Pulse Oximetry 35 L 100 100 08/15/17 12:00 Temperature 97.9 F Pulse Rate 62 Respiratory Rate 19 Blood Pressure 103/53 L Pulse Oximetry 100 Intake & Output 08/14/17 08/15/17 08/15/17 18:59 06:59 18:59 Intake Total 2400 / 2400 1150 / 1150 1050 / 1050 Output Total 900 / 900 650 / 650 Balance 1500 / 1500 500 / 500 1050 / 1050 Weight 92.2 kg Intake: IV 1100 / 1100 1050 / 1050 NS Inj 1,000 ML @ 100 mls/hr IV 1000 / 1000 1000 / 1000 .CONT .Q10H [facility] Rx#:[id number] Ancef 2 GM Premix Inj 2 gm In 100 / 100 50 / 50 50 ml @ 100 mls/hr IV.SIG Q8H [facility] Rx#:[id number] Oral 0 / 0 Tube Feeding 0 / 0 Tube Irrigant 50 / 50 Anesthesia Amount 2400 / 2400 Output: Urine 250 / 250 500 / 500 Estimated Blood Loss 300 / 300 Urine Amount (Catheter) 350 / 350 150 / 150 Indwelling Urethral Catheter 350 / 350 150 / 150 Other: Date of Last Bowel Movement 08/12/17 # Bowel Movements 0 Narrative: Intubated. Lethargic but awakens easily secondary to sedation Follows commands and moves all extremities well - Urinary Catheter Management Indwelling Urethral Catheter Cath placed during this visit: yes Reason for continuing: Hourly intake/output Insertion date: 08/14/17 Insertion time: 14:18 Assessment and Plan - Plan Patient clinically is doing well. Remained intubated due to edema of the cords will need continued observation
[2017-08-15] MEDS ORDERED: ceFAZolin 2 GM Premix Inj 2 GM/50 ML PIGGYBACK IV.SIG ONE (14:15)
[2017-08-15 20:49] LABS: Bacteria,Urine Few /hpf; Bilirubin,Urine Negative (Negative); Clarity,Urine Cloudy (Clear); Color,Urine Yellow (Yellw/Straw); Glucose,Urine (UA) Negative (Negative); Leukocyte Esterase,Urine Moderate (Negative); Nitrite,Urine Negative (Negative); Specific Gravity,Urine 1.024 (1.002-1.035)
[2017-08-16] MEDS: Propofol 1000 mg/100 ml Inj 1,000 MG/100 ML BOTTLE IV.CONT PRN (04:16)
[2017-08-16 05:53] LABS: ABG Base Excess 0.5 mmol/L (-2-2); ABG PCO2 37 mmHg (38-42); ABG PO2 151 mmHg (61-120)
[2017-08-16 06:28] LABS: Baso % (Auto) 0.1 % (0.0-2.0); Eos # (Auto) 0.1 th/mm3 (0.0-0.4); Eos % (Auto) 1.4 % (0.0-4.0); Hematocrit 25.7 % (39.0-51.0); Hemoglobin 8.5 gm/dL (13.0-17.0); Lymph # (Auto) 0.5 th/mm3 (1.0-4.8); Lymph % (Auto) 4.8 % (9.0-44.0); Mean Platelet Volume 8.1 fL (7.0-11.0); Mono # (Auto) 0.6 th/mm3 (0.0-0.9); Mono % (Auto) 5.8 % (0.0-8.0); Neut # (Auto) 8.6 th/mm3 (1.8-7.7); Neut % (Auto) 87.9 % (16.0-70.0); Platelet Count 172 th/mm3 (150-450); Red Blood Count 3.13 mil/mm3 (4.50-5.90); Red Cell Distribution Width 15.2 % (11.6-17.2); White Blood Count 9.8 th/mm3 (4.0-11.0)
[2017-08-16 06:48] LABS: Calcium 7.7 mg/dL (8.5-10.1); Carbon Dioxide 24.5 meq/L (21.0-32.0); Potassium 4.5 meq/L (3.5-5.1)
[2017-08-16] MEDS: Methocarbamol 500 MG Tablet PO SCH ×3 (08:27→21:06)
[2017-08-16] MEDS: Sod Chloride 0.9% Inj 1,000 ML IV.CONT SCH ×2 (08:27→15:00)
[2017-08-16] MEDS: Insulin NovoLOG Aspart Correctional Sugar Inj SQ SCH ×4 (08:28→21:00)
[2017-08-16] MEDS: amLODIPine 10 MG Tablet PO SCH (08:29)
[2017-08-16] MEDS: Famotidine 20 MG Tablet PO SCH (08:29)
[2017-08-16] MEDS: Docusate Sodium 100 MG Capsule PO SCH ×2 (08:30→21:08)
[2017-08-16] MEDS: Senna/Docusate Sodium 8.6/50 MG Tablet PO SCH ×2 (08:30→21:06)
[2017-08-16] MEDS: Lisinopril 20 MG Tablet PO SCH (08:33)
[2017-08-16] MEDS: Oral Hygiene Kit OROPHARYNG SCH ×2 (13:27→17:23)
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
--- NOTE | 2017-08-16 19:41 | P.PNNS ---
Subjective Interval history: Evaluated patient earlier this morning. Patient offers no complaints Physical Exam Vital signs: Vital Signs 08/15/17 20:00 08/15/17 20:49 08/15/17 20:50 Temperature 98.4 F Pulse Rate 68 62 Respiratory Rate 24 17 15 Blood Pressure 104/44 L Pulse Oximetry 100 100 08/16/17 00:00 08/16/17 01:19 08/16/17 04:00 Temperature 97.9 F 98.0 F Pulse Rate 52 L 54 L Respiratory Rate 15 Blood Pressure 120/48 L 126/52 L Pulse Oximetry 100 100 100 08/16/17 04:15 08/16/17 08:00 08/16/17 08:37 Temperature 98.1 F Pulse Rate 52 L Respiratory Rate 15 15 12 Blood Pressure 102/51 L Pulse Oximetry 100 100 100 08/16/17 12:00 08/16/17 16:00 Temperature 98.0 F 98.1 F Pulse Rate 64 66 Respiratory Rate 19 Blood Pressure 115/58 L 101/49 L Pulse Oximetry 100 94 L Intake & Output 08/16/17 08/16/17 08/17/17 06:59 18:59 06:59 Intake Total 1220 / 1220 1170 / 1170 Output Total 800 / 800 1100 / 1100 Balance 420 / 420 70 / 70 Weight 92 kg Intake: IV 1100 / 1100 1050 / 1050 Diprivan 1000 mg/100 ml Inj 1, 100 / 100 50 / 50 000 mg In 100 ml @ 5 MCG/KG/MIN 2.88 mls/hr IV.CONT TITRATE PRN Rx#:[id number] NS Inj 1,000 ML @ 100 mls/hr IV 1000 / 1000 1000 / 1000 .CONT .Q10H [facility] Rx#:[id number] Oral 0 / 0 Tube Feeding 0 / 0 20 / 20 Tube Irrigant 120 / 120 Water Bolus Amount 100 / 100 Output: Urine Amount (Catheter) 800 / 800 1100 / 1100 Indwelling Urethral Catheter 800 / 800 1100 / 1100 Other: Date of Last Bowel Movement 08/12/17 # Bowel Movements 0 0 # Incontinent Bowel Movements 1 Narrative: Alert and awake remains intubated Moves all extremities well - Urinary Catheter Management Indwelling Urethral Catheter Cath placed during this visit: yes, but has since been removed by the nurse Reason for continuing: Decision to DC catheter Insertion date: 08/14/17 Insertion time: 14:18 Removal date: 08/16/17 Removal time: 16:00 Assessment and Plan - Plan Patient clinically is doing well. Remained intubated due to edema of the cords. To be considered for extubation
[2017-08-16] MEDS: Chlorhexidine 0.12% Oral Kit 15 ML UDC OROPHARYNG SCH (21:07)
[2017-08-17] MEDS: Lisinopril 20 MG Tablet PO SCH ×3 (00:54→22:31)
[2017-08-17] MEDS: Famotidine 20 MG Tablet PO SCH ×3 (00:56→22:31)
[2017-08-17] MEDS: Sod Chloride 0.9% Inj 1,000 ML IV.CONT SCH (05:49)
[2017-08-17] MEDS: Oral Hygiene Kit OROPHARYNG SCH ×4 (05:50→17:09)
[2017-08-17 05:59] LABS: Hematocrit 26.7 % (39.0-51.0); Hemoglobin 8.7 gm/dL (13.0-17.0)
[2017-08-17] MEDS: Insulin NovoLOG Aspart Correctional Sugar Inj SQ SCH ×4 (07:28→17:54)
[2017-08-17] MEDS: Methocarbamol 500 MG Tablet PO SCH ×2 (07:29→17:08)
[2017-08-17] MEDS: Chlorhexidine 0.12% Oral Kit 15 ML UDC OROPHARYNG SCH (09:16)
[2017-08-17] MEDS: Senna/Docusate Sodium 8.6/50 MG Tablet PO SCH ×2 (09:18→22:33)
[2017-08-17] MEDS: Docusate Sodium 100 MG Capsule PO SCH ×2 (09:19→22:32)
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
[2017-08-17] MEDS: amLODIPine 10 MG Tablet PO SCH (12:07)
--- NOTE | 2017-08-17 12:14 | P.PNNS ---
Subjective Interval history: extubated, doing well, awake, talking, reports surgical pain controlled. Physical Exam Vital signs: Vital Signs 08/16/17 16:00 08/16/17 20:00 08/16/17 21:35 Temperature 98.1 F 97.4 F L Pulse Rate 66 66 Respiratory Rate 26 H 22 Blood Pressure 101/49 L 114/58 L Pulse Oximetry 94 L 96 08/17/17 00:00 08/17/17 04:00 08/17/17 08:00 Temperature 98 F 98 F 98.3 F Pulse Rate 66 65 70 Respiratory Rate 19 12 21 Blood Pressure 123/65 116/56 L 132/63 Pulse Oximetry 100 100 100 08/17/17 09:19 Temperature Pulse Rate Respiratory Rate Blood Pressure Pulse Oximetry 99 Intake & Output 08/16/17 08/17/17 08/17/17 18:59 06:59 18:59 Intake Total 1170 / 1170 1558 / 1558 Output Total 1100 / 1100 10 / 10 Balance 70 / 70 1548 / 1548 Weight 92 kg Intake: IV 1050 / 1050 1000 / 1000 Diprivan 1000 mg/100 ml Inj 1, 50 / 50 000 mg In 100 ml @ 5 MCG/KG/MIN 2.88 mls/hr IV.CONT TITRATE PRN Rx#:[id number] NS Inj 1,000 ML @ 100 mls/hr IV 1000 / 1000 1000 / 1000 .CONT .Q10H [facility] Rx#:[id number] Oral 0 / 0 Tube Feeding 20 / 20 318 / 318 Tube Irrigant 120 / 120 Water Bolus Amount 100 / 100 120 / 120 Output: Urine Amount (Catheter) 1100 / 1100 Indwelling Urethral Catheter 1100 / 1100 Chest Tube Drainage 10 / 10 Right Anterior 10 / 10 Other: # Voids 1 # Incontinent Voids 1 Date of Last Bowel Movement 08/12/17 08/12/17 # Bowel Movements 0 0 - Constitutional no acute distress - Routine HEENT Exam Head: Present: normocephalic Eye: Present: EOMI - Routine Neck Exam Comments: immobilized by enterprise collar - Routine Neurological Exam Present: alert, moving all extremities - Detailed Neurological Exam: Coma Scale Motor Response: Obey commands - Urinary Catheter Management Indwelling Urethral Catheter Cath placed during this visit: yes, but has since been removed by the nurse Reason for continuing: Decision to DC catheter Insertion date: 08/14/17 Insertion time: 14:18 Removal date: 08/16/17 Removal time: 16:00 Assessment and Plan - Assessment (1) S/P cervical spinal fusion Code(s): Z98.1 - Arthrodesis status Status: Acute (2) S/P fusion of thoracic spine Code(s): Z98.1 - Arthrodesis status Status: Acute - Plan doing well start mobilizing OOB with TLSO brace maintain cervical collar
[2017-08-18] MEDS: Chlorhexidine 0.12% Oral Kit 15 ML UDC OROPHARYNG SCH ×2 (01:04→09:06)
[2017-08-18] MEDS: Methocarbamol 500 MG Tablet PO SCH ×4 (01:05→21:42)
[2017-08-18] MEDS: Oral Hygiene Kit OROPHARYNG SCH ×3 (01:09→17:04)
[2017-08-18] MEDS: Insulin NovoLOG Aspart Correctional Sugar Inj SQ SCH ×4 (09:05→21:53)
[2017-08-18] MEDS: Lisinopril 20 MG Tablet PO SCH ×2 (09:06→21:42)
[2017-08-18] MEDS: Docusate Sodium 100 MG Capsule PO SCH ×2 (09:07→21:43)
[2017-08-18] MEDS: Senna/Docusate Sodium 8.6/50 MG Tablet PO SCH ×2 (09:07→21:44)
[2017-08-18] MEDS: amLODIPine 10 MG Tablet PO SCH (09:07)
[2017-08-18 10:04] LABS: Baso % (Auto) 0.4 % (0.0-2.0); Eos # (Auto) 0.1 th/mm3 (0.0-0.4); Eos % (Auto) 2.3 % (0.0-4.0); Hematocrit 21.7 % (39.0-51.0); Lymph # (Auto) 0.6 th/mm3 (1.0-4.8); Lymph % (Auto) 9.1 % (9.0-44.0); Mean Corpuscular HGB Conc 32.4 % (32.0-36.0); Mean Corpuscular Hemoglobin 26.7 pg (27.0-34.0); Mean Corpuscular Volume 82.4 fL (80.0-100.0); Mono # (Auto) 0.4 th/mm3 (0.0-0.9); Mono % (Auto) 6.3 % (0.0-8.0); Neut # (Auto) 5.2 th/mm3 (1.8-7.7); Neut % (Auto) 81.9 % (16.0-70.0); Platelet Count 170 th/mm3 (150-450); Red Blood Count 2.64 mil/mm3 (4.50-5.90); Red Cell Distribution Width 15.2 % (11.6-17.2); White Blood Count 6.3 th/mm3 (4.0-11.0)
[2017-08-18 10:33] LABS: Alanine Aminotransferase 10 U/L (12-78); Albumin 1.6 g/dL (3.4-5.0); Alkaline Phosphatase 106 U/L (45-117); Anion Gap 8 meq/L (5-15); Aspartate Aminotransferase 10 U/L (15-37); Blood Urea Nitrogen 26 mg/dL (7-18); Calcium 8.7 mg/dL (8.5-10.1); Carbon Dioxide 26.3 meq/L (21.0-32.0); Chloride 107 meq/L (98-107); Glomerular Filtration Rate 71 mL/min (>89); Glucose,Random 149 mg/dL (74-106); Sodium 141 meq/L (136-145); Total Protein 5.2 g/dL (6.4-8.2)
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
--- NOTE | 2017-08-18 14:19 | P.PNNS ---
Subjective Interval history: 08/18: doing well, reports no pain. no new complaints. <Tamar Martinez - Last Filed: 08/18/17 14:14> Physical Exam Vital signs: Vital Signs 08/17/17 16:00 08/17/17 18:00 08/17/17 20:00 Temperature 98.3 F 98.2 F Pulse Rate 81 82 76 Respiratory Rate 19 24 Blood Pressure 125/60 136/63 Pulse Oximetry 95 94 L 08/17/17 20:57 08/17/17 22:00 08/17/17 23:06 Temperature Pulse Rate 77 Respiratory Rate 23 Blood Pressure Pulse Oximetry 93 L 08/18/17 00:00 08/18/17 04:48 08/18/17 08:00 Temperature 97.8 F 98.5 F 97.9 F Pulse Rate 74 77 74 Respiratory Rate 22 18 18 Blood Pressure 133/68 103/53 L 104/54 L Pulse Oximetry 94 L 94 L 94 L 08/18/17 12:00 Temperature 97.4 F L Pulse Rate 75 Respiratory Rate 18 Blood Pressure 111/54 L Pulse Oximetry 93 L Intake & Output 08/17/17 08/18/17 08/18/17 18:59 06:59 18:59 Intake Total 1112 / 1112 360 / 360 Balance 1112 / 1112 360 / 360 Weight 92 kg Intake: IV 540 / 540 NS Inj 1,000 ML @ 100 mls/hr IV 540 / 540 .CONT .Q10H [facility] Rx#:[id number] Oral 0 / 0 360 / 360 Tube Feeding 452 / 452 Water Bolus Amount 120 / 120 Other: # Voids 5 1 Date of Last Bowel Movement 08/17/17 08/17/17 # Bowel Movements 3 0 Narrative: Awake, alert, NAD neck immobilized by cervical collar cervical wound healing well moves all four extremities - Urinary Catheter Management Indwelling Urethral Catheter Cath placed during this visit: yes, but has since been removed by the nurse Reason for continuing: Decision to DC catheter Insertion date: 08/14/17 Insertion time: 14:18 Removal date: 08/16/17 Removal time: 16:00 <Tamar Martinez - Last Filed: 08/18/17 14:14> Vital signs: Intake & Output 08/21/17 08/22/17 08/22/17 18:59 06:59 18:59 Other: Date of Last Bowel Movement 08/19/17 - Urinary Catheter Management Indwelling Urethral Catheter Cath placed during this visit: no <Gerald Vivas - Last Filed: 08/22/17 18:58> Assessment and Plan - Assessment (1) S/P cervical spinal fusion Code(s): Z98.1 - Arthrodesis status Status: Acute (2) S/P fusion of thoracic spine Code(s): Z98.1 - Arthrodesis status Status: Acute - Plan doing well OOB with TLSO brace maintain cervical collar dc thoracic addison 08/28/17 clear for dc to rehab from N[facility] standpoint <Tamar Martinez - Last Filed: 08/18/17 14:14> - Assessment (1) S/P cervical spinal fusion Code(s): Z98.1 - Arthrodesis status Status: Acute Onset Date: ~08/04/17 (2) S/P fusion of thoracic spine Code(s): Z98.1 - Arthrodesis status Status: Acute Onset Date: ~08/14/17 - Plan The exam, history, and the medical decision-making described in the above note were completed with the assistance of the mid-level provider. I reviewed and agree with the findings presented. I attest that I had a [id number] encounter with the patient on the same day, and personally performed and documented my assessment and findings in the medical record. <Gerald Vivas - Last Filed: 08/22/17 18:58>
[2017-08-18] MEDS: Enoxaparin Inj 40 MG/0.4 ML Syringe SQ SCH (17:03)
[2017-08-18] MEDS: Famotidine 20 MG Tablet PO SCH ×2 (17:05→21:44)
[2017-08-18] MEDS ORDERED: Sodium Chlor 0.9% Inj 250 ML IV.SIG SCH (20:00)
[2017-08-19 05:06] LABS: Hematocrit 25.8 % (39.0-51.0); Hemoglobin 8.5 gm/dL (13.0-17.0)
[2017-08-19] MEDS: Methocarbamol 500 MG Tablet PO SCH ×3 (05:42→22:33)
[2017-08-19] MEDS: Docusate Sodium 100 MG Capsule PO SCH ×2 (08:40→22:33)
[2017-08-19] MEDS: Senna/Docusate Sodium 8.6/50 MG Tablet PO SCH ×2 (08:41→22:33)
[2017-08-19] MEDS: Lisinopril 20 MG Tablet PO SCH ×2 (08:41→22:33)
[2017-08-19] MEDS: amLODIPine 10 MG Tablet PO SCH (08:41)
[2017-08-19] MEDS: Famotidine 20 MG Tablet PO SCH ×2 (08:42→22:33)
[2017-08-19] MEDS: Insulin NovoLOG Aspart Correctional Sugar Inj SQ SCH ×4 (11:10→22:34)
[2017-08-19] MEDS: Enoxaparin Inj 40 MG/0.4 ML Syringe SQ SCH (11:14)
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
[2017-08-20 00:58] LABS: Bacteria,Urine Rare /hpf; Bilirubin,Urine Negative (Negative); Clarity,Urine Hazy (Clear); Color,Urine Yellow (Yellw/Straw); Glucose,Urine (UA) Negative (Negative); Leukocyte Esterase,Urine Negative (Negative); Mucus,Urine Few /lpf (Occasional); Nitrite,Urine Negative (Negative); Specific Gravity,Urine 1.011 (1.002-1.035)
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
[2017-08-20] MEDS: Methocarbamol 500 MG Tablet PO SCH ×3 (06:20→22:08)
[2017-08-20 06:47] LABS: Hemoglobin 10.2 gm/dL (13.0-17.0)
[2017-08-20] MEDS: Insulin NovoLOG Aspart Correctional Sugar Inj SQ SCH ×3 (09:17→22:07)
[2017-08-20] MEDS: amLODIPine 10 MG Tablet PO SCH (09:17)
[2017-08-20] MEDS: Lisinopril 20 MG Tablet PO SCH ×2 (09:18→22:09)
[2017-08-20] MEDS: Famotidine 20 MG Tablet PO SCH ×2 (09:18→22:08)
[2017-08-20] MEDS: Senna/Docusate Sodium 8.6/50 MG Tablet PO SCH ×2 (09:18→22:08)
[2017-08-20] MEDS: Docusate Sodium 100 MG Capsule PO SCH ×2 (09:19→22:08)
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
[2017-08-20] MEDS: Enoxaparin Inj 40 MG/0.4 ML Syringe SQ SCH (12:24)
[2017-08-21] MEDS: Methocarbamol 500 MG Tablet PO SCH ×3 (00:12→15:51)
[2017-08-21] MEDS: Insulin NovoLOG Aspart Correctional Sugar Inj SQ SCH ×3 (00:13→12:07)
[2017-08-21] MEDS: amLODIPine 10 MG Tablet PO SCH (08:06)
[2017-08-21] MEDS: Famotidine 20 MG Tablet PO SCH (08:06)
[2017-08-21] MEDS: Senna/Docusate Sodium 8.6/50 MG Tablet PO SCH (08:07)
[2017-08-21] MEDS: Docusate Sodium 100 MG Capsule PO SCH (08:07)
[2017-08-21] MEDS: Lisinopril 20 MG Tablet PO SCH (08:08)
[2017-08-21] MEDS: Enoxaparin Inj 40 MG/0.4 ML Syringe SQ SCH (12:04)
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
== END 2017-08-21 18:01 ==
LOC: N07 18:03 → N03 08-14 18:25 → N06 08-18 00:03
PROVIDERS: ADMIT Surgery; ATTEND Surgery